=== PATIENT | male | born 1955 | race Hispanic/Latino ===

== ENCOUNTER 2020-07-15 09:35 | Inpatient (IN) | payer MEDICARE ==
[~2020-07-15] VITALS: Ht 154.9 cm; Wt 54.4 kg
[2020-07-15] VITALS (10 sets, daily range): BP systolic 76–131; BP diastolic 41–82
[~2020-07-15 09:35] MED LIST: ALPR-410 PO; ASPI-1012 PO; FERR325T22 PO; LEVO88CA4 PO; MULT-1203 PO; SEVE800T27 PO; SIMV-46 PO; ZOLP5TAB8 PO
[2020-07-15] MEDS ORDERED: MIDODRINE HCL 5 MG TABLET ONE (10:08)
[2020-07-15 10:35] LABS: BASOPHILS % (AUTO) 0.4 % (0.0-5.0); EOSINOPHILS % (AUTO) 0.1 % (0.0-8.0); HEMATOCRIT 45.9 % (42-54); LYMPHOCYTES % (AUTO) 1.8 % (21.0-51.0); MEAN CORPUSCULAR HEMOGLOBIN 31.6 pg (27.0-33.0); MEAN CORPUSCULAR HGB CONC 31.4 g/dL (32.0-36.0); MEAN CORPUSCULAR VOLUME 100.9 fL (79-99); MONOCYTES % (AUTO) 3.5 % (3.0-13.0); NEUTROPHILS % (AUTO) 93.7 % (40.0-77.0); NUCLEATED RED BLOOD CELLS 0.4 % (0.0-0.19); PLATELET COUNT (AUTO) 682 K/uL (130-400); RED BLOOD CELL COUNT(AUTO) 4.55 MIL/uL (4.50-6.20); RED CELL DISTRIBUTION WIDTH 17.5 % (11.0-15.5)
[2020-07-15] MEDS ORDERED: ACETAMINOPHEN 500 MG TABLET ONE (10:48)
[2020-07-15 10:57] LABS: ALBUMIN 4.1 g/dL (3.5-5.0); BILIRUBIN,TOTAL 1.6 mg/dL (0.2-1.0); POTASSIUM 5.8 mmol/L (3.5-5.1); TOTAL PROTEIN, SERUM 8.9 g/dL (6.0-8.3)
[2020-07-15 10:59] LABS: CREATININE 9.8 mg/dL (0.5-1.5)
[2020-07-15] MEDS ORDERED: ZOSYN 3.375GM+NS 50ML 50 ML IV ONE (11:03)
[2020-07-15] MEDS ORDERED: 0.9% NACL 500ML IV.SOLN 500 ML IV ONE (11:04)
[2020-07-15 11:11] LABS: B-TYPE NATRIURETIC PEPTIDE 199 pg/mL (0-100)
[2020-07-15 11:41] LABS: CRP QUANTITATIVE 188.6 mg/L (0.00-9.0)
[2020-07-15] MEDS ORDERED: MORPHINE 2 MG SYG ONE (12:53)
[2020-07-15] MEDS ORDERED: ACETAMINOPHEN 325 MG TAB PO PRN (13:45)
[2020-07-15] MEDS ORDERED: GLUCAGON 1MG KIT 1 MG ML IM PRN (13:45)
[2020-07-15] MEDS ORDERED: 0.9%NACL 1000ML 1,000 ML IV SCH ×2 (13:45→15:45)
[2020-07-15] MEDS ORDERED: ONDANSETRON 4MG INJ IVP PRN ×2 (13:45→15:45)
[2020-07-15] MEDS ORDERED: ZOSYN 3.375GM+NS 50ML 50 ML IV SCH (13:45)
[2020-07-15] MEDS ORDERED: MIDAZOLAM HCL 1 MG/ML 2ML VIAL ONE (14:03)
[2020-07-15] MEDS ORDERED: ROCURONIUM 10MG/1ML SYR 10 MG/ML ML ONE (14:03)
[2020-07-15] MEDS ORDERED: LIDOCAINE PF 100MG/5ML (2%) SYRINGE 5ML ONE (14:03)
[2020-07-15] MEDS ORDERED: KETAMINE 50MG/ML SYRINGE 50 MG/ML DISP.SYRIN IV ONE ×2 (14:03→14:52)
[2020-07-15] MEDS ORDERED: EPINEPHRINE 1 MG/ML 30ML VIAL IJ ONE (14:16)
[2020-07-15] MEDS ORDERED: ETOMIDATE 20MG VIAL ONE (14:21)
[2020-07-15] MEDS ORDERED: FENTANYL CITRATE PF 50 MCG/1 ML 2ML VIAL ONE (14:52)
[2020-07-15] MEDS ORDERED: BUPIVACAINE/PF 0.25% 30ML VIAL IJ ONE (15:20)
[2020-07-15] MEDS ORDERED: NEOSTIGMINE 5MG/5ML SYR IV ONE (15:28)
[2020-07-15] MEDS ORDERED: GLYCOPYRROLATE 1 MG/5 ML SYRINGE ONE (15:28)
[2020-07-15 15:43] LABS: ABG BASE EXCESS -11.1 mmol/L (-2.0-3.0); ABG HCO3 16.5 mmol/L (21.0-28.0); ABG OXYGEN SATURATION 99.6 % (95.0-99.0); ABG PCO2 44 mmHg (35-48)
[2020-07-15] MEDS ORDERED: INSULIN HUMULIN R 100 UNIT/ML 3ML SQ PRN (15:45)
[2020-07-15] MEDS ORDERED: MORPHINE 4 MG SYG IV PRN (15:45)
[2020-07-15] MEDS: INSULIN HUMULIN R 100 UNIT/ML 3ML SQ SCH ×2 (16:30→23:59)
[2020-07-15 16:31] LABS: HEMATOCRIT 39.2 % (42-54); MEAN CORPUSCULAR HEMOGLOBIN 31.6 pg (27.0-33.0); MEAN CORPUSCULAR HGB CONC 32.1 g/dL (32.0-36.0); MEAN CORPUSCULAR VOLUME 98.2 fL (79-99); NUCLEATED RED BLOOD CELLS 0.5 % (0.0-0.19); RED BLOOD CELL COUNT(AUTO) 3.99 MIL/uL (4.50-6.20); WHITE BLOOD COUNT (AUTO) 23.7 K/uL (4.8-10.8)
[2020-07-15 16:38] LABS: ABG BASE EXCESS -10.4 mmol/L (-2.0-3.0); ABG HCO3 15.7 mmol/L (21.0-28.0); ABG OXYGEN SATURATION 99.6 % (95.0-99.0); ABG PCO2 36 mmHg (35-48)
[2020-07-15 16:58] LABS: ALBUMIN 3.1 g/dL (3.5-5.0); BILIRUBIN,TOTAL 1.4 mg/dL (0.2-1.0); POTASSIUM 4.8 mmol/L (3.5-5.1)
[2020-07-15 17:24] LABS: CREATININE 8.6 mg/dL (0.5-1.5)
[2020-07-15] MEDS ORDERED: RENAL DOSE IV SCH (18:45)
[2020-07-15] MEDS ORDERED: RENAL DOSE IV PRN (20:45)
[2020-07-15] MEDS: NOREPINEPHRIN 4MG/NS 250ML 250 ML IV SCH (20:52)
[2020-07-15] MEDS: ZOSYN 3.375GM+NS 50ML 50 ML IV SCH (20:53)
[2020-07-15] MEDS ORDERED: PHARMACY COMMUNICATION**MICAFUNGIN ORDER MISC SCH (21:00)
[2020-07-15] MEDS ORDERED: PHARMACY COMMUNICATION MISC SCH (21:00)
[2020-07-16] VITALS (27 sets, daily range): BP systolic 79–134; BP diastolic 34–74
[2020-07-16] MEDS: DEXTROSE 50%-WATER 50 ML DISP.SYRIN IV PRN ×2 (01:21→12:37)
[2020-07-16] MEDS: HYDROMORPHONE 0.5 MG SYG (0.5MG/0.5ML) IVP PRN (01:27)
[2020-07-16] MEDS: NOREPINEPHRIN 4MG/NS 250ML 250 ML IV SCH ×6 (01:38→21:10)
[2020-07-16] MEDS: VASOPRESSIN 20 UNITS in 0.9%NACL 100ML 100 ML IV SCH ×2 (03:01→11:09)
[2020-07-16 05:13] LABS: BASOPHILS % (AUTO) 0.2 % (0.0-5.0); EOSINOPHILS % (AUTO) 0.2 % (0.0-8.0); HEMATOCRIT 36.2 % (42-54); LYMPHOCYTES % (AUTO) 3.8 % (21.0-51.0); MEAN CORPUSCULAR HEMOGLOBIN 31.4 pg (27.0-33.0); MEAN CORPUSCULAR HGB CONC 31.8 g/dL (32.0-36.0); MEAN CORPUSCULAR VOLUME 98.9 fL (79-99); MONOCYTES % (AUTO) 4.1 % (3.0-13.0); NEUTROPHILS % (AUTO) 91.1 % (40.0-77.0); NUCLEATED RED BLOOD CELLS 0.5 % (0.0-0.19); PLATELET COUNT (AUTO) 544 K/uL (130-400); RED BLOOD CELL COUNT(AUTO) 3.66 MIL/uL (4.50-6.20); RED CELL DISTRIBUTION WIDTH 17.3 % (11.0-15.5); WHITE BLOOD COUNT (AUTO) 21.3 K/uL (4.8-10.8)
[2020-07-16 05:47] LABS: ALBUMIN 2.6 g/dL (3.5-5.0); BILIRUBIN,TOTAL 1.1 mg/dL (0.2-1.0); POTASSIUM 5.7 mmol/L (3.5-5.1); TOTAL PROTEIN, SERUM 6.5 g/dL (6.0-8.3)
[2020-07-16 06:04] LABS: CREATININE 9.4 mg/dL (0.5-1.5)
[2020-07-16] MEDS: INSULIN HUMULIN R 100 UNIT/ML 3ML SQ SCH ×4 (06:08→21:00)
[2020-07-16] MEDS ORDERED: FAMOTIDINE 20MG VIAL IV SCH (09:00)
[2020-07-16] MEDS ORDERED: ENOXAPARIN SODIUM 30 MG/0.3 ML SQ SCH (09:00)
[2020-07-16] MEDS: PANTOPRAZOLE 40 MG/VIAL IVP SCH (09:36)
[2020-07-16] MEDS: ZOSYN 3.375GM+NS 50ML 50 ML IV SCH (09:36)
[2020-07-16] MEDS ORDERED: RENAL DOSE IV SCH (11:15)
[2020-07-16] MEDS: MEROPENEM 500 MG VIAL IVP SCH (12:37)
[2020-07-16] MEDS: LINEZOLID 600 MG/ISO-OSM 300 ML IV SCH ×2 (12:37→22:40)
[2020-07-16] MEDS ORDERED: ALBUMIN (HUMAN) 25% 50 ML IV SCH (13:45)
[2020-07-16] MEDS ORDERED: TRAMADOL /APAP 37.5MG/325MG TAB PO PRN (14:00)
[2020-07-16] MEDS ORDERED: ACETAMINOPHEN 325 MG TAB PO PRN ×2 (14:00→19:30)
[2020-07-16] MEDS: MICAFUNGIN 100MG+NS 100ML 100 ML IV SCH (14:08)
[2020-07-16] MEDS: DEXTROSE 5%-LACTATED RINGERS 1,000 ML IV SCH (16:20)
[2020-07-16] MEDS ORDERED: ALBUMIN (HUMAN) 25% 0 ML IV ONE (16:21)
[2020-07-16] MEDS ORDERED: ALBUMIN (HUMAN) 25% 100 ML IV PRN (16:30)
[2020-07-16] MEDS ORDERED: PHARMACY COMMUNICATION MISC SCH ×2 (16:45→17:15)
[2020-07-16] MEDS ORDERED: ALBUMIN FOR BP SUPPORT MISC PRN (19:30)
[2020-07-16] MEDS ORDERED: NITROGLYCERIN 0.4 MG SL TAB SL PRN (19:30)
[2020-07-16] MEDS ORDERED: LIDOCAINE HCL-MPF 1% 2ML VIAL IJ PRN (19:30)
[2020-07-16] MEDS ORDERED: 0.9%NACL 1000ML IV PRN (19:30)
[2020-07-16] MEDS ORDERED: HEPARIN 5,000 UNIT VIAL IJ PRN (19:30)
[2020-07-16] MEDS ORDERED: 0.9%NACL 1000ML 1,000 ML IV PRN (19:30)
[2020-07-17] VITALS (24 sets, daily range): BP systolic 84–154; BP diastolic 45–82
[2020-07-17] MEDS ORDERED: MORPHINE 2 MG SYG IM PRN (00:15)
[2020-07-17] MEDS: HYDROMORPHONE 0.5 MG SYG (0.5MG/0.5ML) IVP PRN ×3 (00:48→21:14)
[2020-07-17] MEDS: NOREPINEPHRIN 4MG/NS 250ML 250 ML IV SCH ×3 (00:50→20:54)
[2020-07-17] MEDS: DEXTROSE 5%-LACTATED RINGERS 1,000 ML IV SCH (01:30)
[2020-07-17] MEDS ORDERED: LORAZEPAM 2 MG/ML 1 ML VIAL ONE (04:14)
[2020-07-17] MEDS ORDERED: LORAZEPAM 2 MG/ML 1 ML VIAL IVP SCH (04:15)
[2020-07-17] MEDS: INSULIN HUMULIN R 100 UNIT/ML 3ML SQ SCH ×4 (06:33→20:38)
[2020-07-17 06:39] LABS: BASOPHILS % (AUTO) 0.2 % (0.0-5.0); EOSINOPHILS % (AUTO) 0.2 % (0.0-8.0); HEMATOCRIT 31.4 % (42-54); LYMPHOCYTES % (AUTO) 2.5 % (21.0-51.0); MEAN CORPUSCULAR HEMOGLOBIN 30.8 pg (27.0-33.0); MEAN CORPUSCULAR HGB CONC 31.8 g/dL (32.0-36.0); MEAN CORPUSCULAR VOLUME 96.6 fL (79-99); MONOCYTES % (AUTO) 3.7 % (3.0-13.0); NUCLEATED RED BLOOD CELLS 0.2 % (0.0-0.19); PLATELET COUNT (AUTO) 448 K/uL (130-400); RED BLOOD CELL COUNT(AUTO) 3.25 MIL/uL (4.50-6.20); RED CELL DISTRIBUTION WIDTH 17.2 % (11.0-15.5); WHITE BLOOD COUNT (AUTO) 13.1 K/uL (4.8-10.8)
[2020-07-17 06:55] LABS: ALBUMIN 2.2 g/dL (3.5-5.0); BILIRUBIN,TOTAL 0.6 mg/dL (0.2-1.0); CREATININE 5.5 mg/dL (0.5-1.5); POTASSIUM 4.1 mmol/L (3.5-5.1)
[2020-07-17] MEDS: PANTOPRAZOLE 40 MG/VIAL IVP SCH (10:25)
[2020-07-17] MEDS: MEROPENEM 500 MG VIAL IVP SCH (10:25)
[2020-07-17] MEDS: LINEZOLID 600 MG/ISO-OSM 300 ML IV SCH ×2 (10:25→22:55)
[2020-07-17] MEDS: MIDODRINE HCL 5 MG TABLET PO SCH ×3 (10:27→20:40)
[2020-07-17] MEDS: MICAFUNGIN 100MG+NS 100ML 100 ML IV SCH (10:27)
[2020-07-17] MEDS: VASOPRESSIN 20 UNITS in 0.9%NACL 100ML 100 ML IV SCH (16:46)
[2020-07-17] MEDS: ONDANSETRON 4MG INJ IVP PRN (21:13)
[2020-07-18] VITALS (24 sets, daily range): BP systolic 92–147; BP diastolic 52–83
[2020-07-18] MEDS: VASOPRESSIN 20 UNITS in 0.9%NACL 100ML 100 ML IV SCH (00:21)
[2020-07-18] MEDS: HYDROMORPHONE 0.5 MG SYG (0.5MG/0.5ML) IVP PRN ×2 (02:43→20:45)
[2020-07-18 04:54] LABS: BASOPHILS % (AUTO) 0.2 % (0.0-5.0); EOSINOPHILS % (AUTO) 1.2 % (0.0-8.0); HEMATOCRIT 29.9 % (42-54); LYMPHOCYTES % (AUTO) 3.4 % (21.0-51.0); MEAN CORPUSCULAR HEMOGLOBIN 31.3 pg (27.0-33.0); MEAN CORPUSCULAR HGB CONC 31.8 g/dL (32.0-36.0); MEAN CORPUSCULAR VOLUME 98.4 fL (79-99); MONOCYTES % (AUTO) 5.1 % (3.0-13.0); NEUTROPHILS % (AUTO) 89.7 % (40.0-77.0); NUCLEATED RED BLOOD CELLS 0.2 % (0.0-0.19); PLATELET COUNT (AUTO) 413 K/uL (130-400); RED BLOOD CELL COUNT(AUTO) 3.04 MIL/uL (4.50-6.20); RED CELL DISTRIBUTION WIDTH 17.1 % (11.0-15.5); WHITE BLOOD COUNT (AUTO) 8.3 K/uL (4.8-10.8)
[2020-07-18 05:17] LABS: ALBUMIN 2.1 g/dL (3.5-5.0); BILIRUBIN,TOTAL 0.7 mg/dL (0.2-1.0); CREATININE 6.4 mg/dL (0.5-1.5); POTASSIUM 3.9 mmol/L (3.5-5.1); TOTAL PROTEIN, SERUM 6.3 g/dL (6.0-8.3)
[2020-07-18] MEDS: INSULIN HUMULIN R 100 UNIT/ML 3ML SQ SCH ×4 (07:30→20:40)
[2020-07-18] MEDS: MICAFUNGIN 100MG+NS 100ML 100 ML IV SCH (08:25)
[2020-07-18] MEDS: MIDODRINE HCL 5 MG TABLET PO SCH ×3 (08:25→20:40)
[2020-07-18] MEDS: PANTOPRAZOLE 40 MG/VIAL IVP SCH (08:25)
[2020-07-18] MEDS ORDERED: VANCOMYCIN PROTOCOL PER PHARMACY IV SCH (09:00)
[2020-07-18] MEDS: VANCOMYCIN 1G/250ML KIT 250 ML IV SCH ×2 (09:43→15:00)
[2020-07-18] MEDS ORDERED: ACETAMINOPHEN 500 MG TABLET PO PRN (10:15)
[2020-07-18] MEDS ORDERED: FENTANYL CITRATE PF 50 MCG/1 ML 2ML VIAL IVP PRN (10:15)
[2020-07-18] MEDS: MEROPENEM 500 MG VIAL IVP SCH (10:57)
[2020-07-18] MEDS: METOCLOPRAMIDE 10 MG/2 ML VIAL IVP SCH ×2 (11:07→17:38)
[2020-07-18] MEDS ORDERED: METOCLOPRAMIDE 10 MG/2 ML VIAL IVP SCH (12:00)
[2020-07-18] MEDS: ONDANSETRON 4MG INJ IVP PRN (20:40)
[2020-07-19] VITALS (20 sets, daily range): BP systolic 92–126; BP diastolic 44–78
[2020-07-19] MEDS: METOCLOPRAMIDE 10 MG/2 ML VIAL IVP SCH ×4 (00:38→17:45)
[2020-07-19 05:52] LABS: HEMATOCRIT 31.5 % (42-54); MEAN CORPUSCULAR HEMOGLOBIN 31.3 pg (27.0-33.0); MEAN CORPUSCULAR HGB CONC 32.7 g/dL (32.0-36.0); MEAN CORPUSCULAR VOLUME 95.7 fL (79-99); NUCLEATED RED BLOOD CELLS 0.4 % (0.0-0.19); PLATELET COUNT (AUTO) 375 K/uL (130-400); RED BLOOD CELL COUNT(AUTO) 3.29 MIL/uL (4.50-6.20); RED CELL DISTRIBUTION WIDTH 16.7 % (11.0-15.5); WHITE BLOOD COUNT (AUTO) 7.9 K/uL (4.8-10.8)
[2020-07-19] MEDS: HYDROMORPHONE 0.5 MG SYG (0.5MG/0.5ML) IVP PRN (06:07)
[2020-07-19 06:17] LABS: CREATININE 7.7 mg/dL (0.5-1.5); MAGNESIUM 1.7 mg/dL (1.80-2.40); PHOSPHORUS 5.7 mg/dL (2.5-4.9); POTASSIUM 3.7 mmol/L (3.5-5.1)
[2020-07-19] MEDS: INSULIN HUMULIN R 100 UNIT/ML 3ML SQ SCH ×4 (06:25→21:00)
[2020-07-19] MEDS ORDERED: COSYNTROPIN 0.25 MG VIAL IVP SCH (07:15)
[2020-07-19 07:44] LABS: LYMPHOCYTES % (MANUAL) 5 % (22-44); MAN.DIFF COMMENT-IMPRESSION MANUAL DIFFERENTIAL; MONOCYTES % (MANUAL) 4 % (2-9); SEGMENTED NEUTROPHILS % 91 % (40-70)
[2020-07-19 07:45] LABS: PLATELET MORPHOLOGY COMMENT ADEQUATE
[2020-07-19] MEDS: FLUDROCORTISONE ACETATE 0.1 MG TABLET PO SCH (08:10)
[2020-07-19] MEDS: PANTOPRAZOLE 40 MG/VIAL IVP SCH (08:10)
[2020-07-19] MEDS: MIDODRINE HCL 5 MG TABLET PO SCH ×3 (08:10→21:34)
[2020-07-19] MEDS: MICAFUNGIN 100MG+NS 100ML 100 ML IV SCH (08:10)
[2020-07-19] MEDS ORDERED: ALBUMIN (HUMAN) 25% 100 ML IV SCH (09:15)
[2020-07-19] MEDS ORDERED: ALBUMIN (HUMAN) 25% 100 ML IV ONE (09:45)
[2020-07-19] MEDS ORDERED: ALBUMIN (HUMAN) 25% 50 ML IV SCH (10:00)
[2020-07-19] MEDS ORDERED: ALBUMIN (HUMAN) 25% 100 ML IV PRN (10:15)
[2020-07-19] MEDS: MEROPENEM 500 MG VIAL IVP SCH (11:13)
[2020-07-19] MEDS: ACETAMINOPHEN 500 MG TABLET PO SCH ×2 (11:14→17:46)
[2020-07-19] MEDS: VANCOMYCIN 1G/250ML KIT 250 ML IV SCH (14:12)
[2020-07-20] VITALS (7 sets, daily range): BP systolic 102–135; BP diastolic 64–87
[2020-07-20] MEDS: METOCLOPRAMIDE 10 MG/2 ML VIAL IVP SCH ×5 (00:13→23:05)
[2020-07-20] MEDS: ACETAMINOPHEN 500 MG TABLET PO SCH ×5 (00:13→23:05)
[2020-07-20 05:24] LABS: BASOPHILS % (AUTO) 0.4 % (0.0-5.0); EOSINOPHILS % (AUTO) 2.5 % (0.0-8.0); HEMATOCRIT 33.3 % (42-54); LYMPHOCYTES % (AUTO) 9.1 % (21.0-51.0); MEAN CORPUSCULAR HEMOGLOBIN 31.1 pg (27.0-33.0); MEAN CORPUSCULAR HGB CONC 32.7 g/dL (32.0-36.0); MEAN CORPUSCULAR VOLUME 94.9 fL (79-99); MONOCYTES % (AUTO) 11.2 % (3.0-13.0); NEUTROPHILS % (AUTO) 76.4 % (40.0-77.0); PLATELET COUNT (AUTO) 383 K/uL (130-400); RED BLOOD CELL COUNT(AUTO) 3.51 MIL/uL (4.50-6.20); WHITE BLOOD COUNT (AUTO) 5.2 K/uL (4.8-10.8)
[2020-07-20 05:29] LABS: ALBUMIN 2.8 g/dL (3.5-5.0); BILIRUBIN,TOTAL 0.7 mg/dL (0.2-1.0); CREATININE 4.7 mg/dL (0.5-1.5); MAGNESIUM 1.5 mg/dL (1.80-2.40); POTASSIUM 3.3 mmol/L (3.5-5.1); TOTAL PROTEIN, SERUM 6.5 g/dL (6.0-8.3)
[2020-07-20] MEDS: DEXTROSE 50%-WATER 50 ML DISP.SYRIN IV PRN (06:53)
[2020-07-20] MEDS: INSULIN HUMULIN R 100 UNIT/ML 3ML SQ SCH ×4 (06:53→19:49)
[2020-07-20 08:15] LABS: HEPATITIS A ANTIBODY IGM Negative (Negative); HEPATITIS B CORE IGM Negative (Negative); HEPATITIS Bs ANTIGEN SCREEN P Negative (Negative)
[2020-07-20] MEDS: PANTOPRAZOLE 40 MG/VIAL IVP SCH (08:31)
[2020-07-20] MEDS: MIDODRINE HCL 5 MG TABLET PO SCH ×3 (08:31→20:05)
[2020-07-20] MEDS: FLUDROCORTISONE ACETATE 0.1 MG TABLET PO SCH (08:40)
[2020-07-20] MEDS: MICAFUNGIN 100MG+NS 100ML 100 ML IV SCH (09:31)
[2020-07-20] MEDS: MEROPENEM 500 MG VIAL IVP SCH (11:57)
[2020-07-20] MEDS: PHARMACY COMMUNICATION MISC SCH ×3 (19:00→22:06)
[2020-07-21] MEDS: PHARMACY COMMUNICATION MISC SCH ×11 (00:22→23:00)
[2020-07-21 04:00] VITALS: BP 104/64
[2020-07-21 04:52] LABS: BASOPHILS % (AUTO) 0.6 % (0.0-5.0); EOSINOPHILS % (AUTO) 5.9 % (0.0-8.0); HEMATOCRIT 32.6 % (42-54); LYMPHOCYTES % (AUTO) 9.5 % (21.0-51.0); MEAN CORPUSCULAR HEMOGLOBIN 31.2 pg (27.0-33.0); MEAN CORPUSCULAR HGB CONC 33.1 g/dL (32.0-36.0); MEAN CORPUSCULAR VOLUME 94.2 fL (79-99); MONOCYTES % (AUTO) 9.7 % (3.0-13.0); NEUTROPHILS % (AUTO) 73.9 % (40.0-77.0); PLATELET COUNT (AUTO) 383 K/uL (130-400); RED BLOOD CELL COUNT(AUTO) 3.46 MIL/uL (4.50-6.20); RED CELL DISTRIBUTION WIDTH 15.9 % (11.0-15.5); WHITE BLOOD COUNT (AUTO) 4.7 K/uL (4.8-10.8)
[2020-07-21 05:02] LABS: CREATININE 5.8 mg/dL (0.5-1.5); MAGNESIUM 1.7 mg/dL (1.80-2.40); PHOSPHORUS 5.5 mg/dL (2.5-4.9); POTASSIUM 3.2 mmol/L (3.5-5.1)
[2020-07-21] MEDS: INSULIN HUMULIN R 100 UNIT/ML 3ML SQ SCH ×4 (05:12→21:00)
[2020-07-21] MEDS: ACETAMINOPHEN 500 MG TABLET PO SCH ×3 (05:20→17:18)
[2020-07-21] MEDS: METOCLOPRAMIDE 10 MG/2 ML VIAL IVP SCH ×3 (05:20→17:52)
[2020-07-21 08:16] VITALS: BP 94/62
[2020-07-21] MEDS: MIDODRINE HCL 5 MG TABLET PO SCH ×3 (08:52→21:19)
[2020-07-21] MEDS: PANTOPRAZOLE 40 MG/VIAL IVP SCH (09:00)
[2020-07-21] MEDS: MICAFUNGIN 100MG+NS 100ML 100 ML IV SCH (09:00)
[2020-07-21 12:01] VITALS: BP 95/62
[2020-07-21] MEDS: MEROPENEM 500 MG VIAL IVP SCH (12:39)
[2020-07-21] MEDS ORDERED: ACETAMINOPHEN 325 MG TAB PO PRN (13:15)
[2020-07-21] MEDS ORDERED: 0.9%NACL 1000ML 1,000 ML IV PRN (13:15)
[2020-07-21] MEDS ORDERED: LIDOCAINE HCL-MPF 1% 2ML VIAL IJ PRN (13:15)
[2020-07-21] MEDS ORDERED: NITROGLYCERIN 0.4 MG SL TAB SL PRN (13:15)
[2020-07-21] MEDS ORDERED: 0.9%NACL 1000ML IV PRN (13:15)
[2020-07-21] MEDS ORDERED: ALBUMIN FOR BP SUPPORT MISC PRN (13:15)
[2020-07-21] MEDS ORDERED: HEPARIN 5,000 UNIT VIAL IJ PRN ×2 (13:15)
[2020-07-21 16:00] VITALS: BP 100/59
[2020-07-21] MEDS ORDERED: LOPERAMIDE 1 MG/7.5 ML UDCUP PO SCH (16:30)
[2020-07-21] MEDS: FLUDROCORTISONE ACETATE 0.1 MG TABLET PO SCH (17:15)
[2020-07-21 21:49] VITALS: BP 103/68
[2020-07-22] MEDS: METOCLOPRAMIDE 10 MG/2 ML VIAL IVP SCH ×2 (00:03→05:11)
[2020-07-22] MEDS: PHARMACY COMMUNICATION MISC SCH ×3 (00:10→04:42)
[2020-07-22 01:16] VITALS: BP 101/57
[2020-07-22 04:34] LABS: BASOPHILS % (AUTO) 0.6 % (0.0-5.0); EOSINOPHILS % (AUTO) 4.4 % (0.0-8.0); HEMATOCRIT 32.1 % (42-54); LYMPHOCYTES % (AUTO) 8.1 % (21.0-51.0); MEAN CORPUSCULAR HEMOGLOBIN 30.5 pg (27.0-33.0); MEAN CORPUSCULAR HGB CONC 32.1 g/dL (32.0-36.0); MONOCYTES % (AUTO) 7.1 % (3.0-13.0); NEUTROPHILS % (AUTO) 79.4 % (40.0-77.0); PLATELET COUNT (AUTO) 462 K/uL (130-400); RED BLOOD CELL COUNT(AUTO) 3.38 MIL/uL (4.50-6.20); RED CELL DISTRIBUTION WIDTH 16.1 % (11.0-15.5); WHITE BLOOD COUNT (AUTO) 8.3 K/uL (4.8-10.8)
[2020-07-22 04:42] LABS: CREATININE 4.3 mg/dL (0.5-1.5)
[2020-07-22 04:46] LABS: POTASSIUM 2.8 mmol/L (3.5-5.1)
[2020-07-22] MEDS: ACETAMINOPHEN 500 MG TABLET PO SCH ×2 (05:18)
[2020-07-22] MEDS: INSULIN HUMULIN R 100 UNIT/ML 3ML SQ SCH (05:45)
[2020-07-22 06:02] VITALS: BP 115/72
[2020-07-22] MEDS ORDERED: POTASSIUM CHLORIDE 10MEQ/100ML 100 ML IV PRN (08:00)
[2020-07-22] MEDS ORDERED: LIDOCAINE HCL-MPF 1% 2ML VIAL IV PRN (08:00)
[2020-07-22 08:08] VITALS: BP_SYST 114; BP_SYST 140; BP_DIAS 67; BP_DIAS 75
== END 2020-07-22 10:50 | disposition left against medical advice (07) | DRG 853 ==
LOC: EDH 09:35 → EDHIP 13:43 → 2DH 16:03 → 4BH 07-19 17:47
PROVIDERS: ADMIT Family Medicine; ATTEND Family Medicine
PROC: 0DQ60ZZ Repair Stomach, Open Approach (ICD-10-PCS; 2020-07-15)
PROC: 0W9G0ZZ Drainage of Peritoneal Cavity, Open Approach (ICD-10-PCS; principal; 2020-07-15 14:50)
PROC: 5A1D70Z Performance of Urinary Filtration, Intermittent, Less than 6 Hours Per Day (ICD-10-PCS; 2020-07-16)
PROC: 5A1D70Z Performance of Urinary Filtration, Intermittent, Less than 6 Hours Per Day (ICD-10-PCS; 2020-07-19)
PROC: 5A1D70Z Performance of Urinary Filtration, Intermittent, Less than 6 Hours Per Day (ICD-10-PCS; 2020-07-21)
DX: A41.9 Sepsis, unspecified organism (principal); R65.21 Severe sepsis with septic shock; K63.1 Perforation of intestine (nontraumatic); K25.5 Chronic or unspecified gastric ulcer with perforation; N18.6 End stage renal disease; K56.7 Ileus, unspecified; I12.0 Hypertensive chronic kidney disease with stage 5 chronic kidney disease or end stage renal disease; E88.09 Other disorders of plasma-protein metabolism, not elsewhere classified; E11.22 Type 2 diabetes mellitus with diabetic chronic kidney disease; Z99.2 Dependence on renal dialysis; E87.5 Hyperkalemia; Z91.15 Patient's noncompliance with renal dialysis; D64.9 Anemia, unspecified; D72.810 Lymphocytopenia; E87.6 Hypokalemia; E78.00 Pure hypercholesterolemia, unspecified; E78.5 Hyperlipidemia, unspecified; E83.42 Hypomagnesemia; Z74.01 Bed confinement status; Z79.899 Other long term (current) drug therapy; Z83.3 Family history of diabetes mellitus; R53.81 Other malaise; Z20.822 Contact with and (suspected) exposure to COVID-19
CPT/HCPCS: 36415; 71045; 74018; 74176; 80048; 80053; 80074; 80202; 80400; 82435; 82533; 82803; 82947; 82948; 83605; 83690; 83735; 83880; 84100; 84132; 84145; 84295; 84484; 85018; 85025; 85027; 86140; 87040; 87426; 87507; 88307; 88342; 90935; 93005; 97039; C9113; G0378; J0171; J0834; J1170; J1644; J2001; J2020; J2060; J2185; J2248; J2250; J2405; J2543; J2710; J2765; J3010; J3370; J3490; J7030; J7040; J7070; P9046; P9047; Q0161; U0003